=== PATIENT | female | born 1955 | race Caucasian/White ===

== ENCOUNTER 2019-03-11 08:32 | Day surgery (SDC) | payer BC, SELFPAY ==
--- NOTE | 2019-03-11 | COLBX_PTH ---
PATIENT: CAESAR SERRA LOC: EN U#:[id number] AGE/SX: 63/F ROOM: RE03/11/[address]: Dr. Nikia Reza MD : 1955 BED: DIS: 03/11/2019 SPEC #: [id number] RECD: 03/11/19 14:36 STATUS: JASVIR RIKKI #: [id number] TANYA: 03/11/19 00:[address]: Nikia Reza DEPT: SURGICAL PATHOLOGY RECD BY: Mathew Daly ENTERED: 03/12/19 12:11 SP TYPE: COLON BX OTHR DR: Dr. Flakito Jackson, Tissues: A - Cecum, NOS B - Rectum, NOS Procedures: Surgery Specimen Level IV HEADER OPERATION: Colonoscopy - open access (MAC) PRE-OP DIAGNOSIS: Screening TISSUE SUBMITTED: A -Cecal polyp biopsy, B - Rectal polyp biopsy MICROSCOPIC DIAGNOSIS A. Cecal polyp, biopsy: Fragments of colonic mucosa, no pathologic diagnosis. B. Rectal polyp, biopsy Fragments of hyperplastic polyp. USAMA:law 03/13/19 MICROSCOPIC DESCRIPTION Slides are reviewed. GROSS DESCRIPTION A - Received in fixative is one container labeled with the patient's name and designated cecal polyp biopsy. The specimen consists of two irregular fragments of light ramirez soft tissue that in aggregate measure 0.5 x 0.3 x 0.1 cm. The specimen is totally submitted in one cassette. B - Received in fixative is one container labeled with the patient's name and designated rectal polyp biopsy. The specimen consists of multiple irregular fragments of light ramirez soft tissue that in aggregate measure 1.5 x 0.3 x 0.1 cm. The specimen is totally submitted in one cassette. / USAMA:law 03/12/19 TC:5 CPT: 84735 x2
[2019-03-11 08:49] VITALS: BP 106/71; PULSE 70; RESP 16; TEMP 36.5; O2SAT 100; BMI 25.8
--- NOTE | 2019-03-11 09:01 | H&P.OPEN ---
History of Present Illness Date of Admission: 03/11/19 The patient is a 63 year old F presents for screening colonoscopy. Patient states her prep is clear yellow liquid. Patient's father was diagnosed at 63 and at age 64 from colon cancer. Patient's brother diagnosed at age 52 and is currently undergoing treatment for colon cancer. Patient did have a total thyroidectomy as well as a left mastectomy for thyroid cancer and left breast cancer in 2018. Patient states she has bowel movements about every other day denies any blood. Patient is never had a colonoscopy. Past Medical/Surgical History - Planned Operation Planned Operative Procedure/s: COLONOSCOPY Date of Operative Procedure: 03/11/19 Permit Signed: No S.O.S: No Is This Patient Having a Total Joint: No - Previous Hospitalizations/Surgeries HX Hospitalizations: Yes - 2018/ MASTECTOMY/THYROIDECTOMY HX of Surgeries: TOTAL THYROIDECTOMY/ CA. LEFT MASTECTOMY/ NODES. TUBAL/HYSTERECTOMY. APPENDECTOMY Any Problems With Anesthesia: Yes - N/V You/Your Family Experience Fever (Hyperthermia) With Anes: No Cholinesterase deficiency: No - Cardiovascular Hx Chest Pain within Last 2 months: No Hx of Irregular Heartbeat and/or Afib: Yes - MURMUR PER HX Hx Heart Attack: No Hx Congestive Heart Failure: No Hx Rheumatic Fever: No Hx Hypertension: No Hx Internal Defibrillator: No Hx Pacemaker: No Hx Cardiac Catheterization: No Hx Cardiac Surgery/Stents/Etc.: No Hx Stress Test: No HX Edema: No Hx Pain in Legs when Walking/Leg Cramps: No - Respiratory Chronic Cough: No HX of Shortness of Breath: No Hoarseness: No Hx Chronic Obstructive Pulmonary Disease (COPD): No Hx Asthma: No Hx Emphysema: No Hx Sleep Apnea: No Hx Oxygen Use at Home: No Hx Respiratory Tract Infection/Cold (presently): No Do You Snore Loudly (louder than talking or can be heard): Yes Do You Often Feel Tired/ Fatigued/ Sleepy Dring Daytime?: No Has Anyone Observed You Stop Breathing During Sleep?: No Result (for STOP score): Negative Hx Smoking: Yes - QUIT 2018, FORMER 40+ YRS Smoking Status: Former smoker - Gastrointestinal Hx Gastroesophageal Reflux: No Hx Gastrointestinal Disorders: No Hx Gastrointestinal Bleed: No Hx Ulcer: No Hx Hiatal Hernia: No Difficulty Chewing/Swallowing: No Recent Onset of Swallowing Problems: No Special diet followed at home: No Hx Unplanned Weight Loss of 20#: No HX Unplanned Weight Gain of 20#: No - Neurological Hx Seizures: No HX Syncope/Blackout Spells/Unconsciousness: No Hx CVA/Stroke: No Hx Transient Ischemic Attacks (TIA): No Hx Multiple Sclerosis: No Hx Parkinson's Disease: No Hx Head/Neck Injury: No Hx Headaches: No Hx Back Injury/Pain: No Recent Onset of Speech Difficulty: No Restless Legs: No Does patient have nerve stimulator: No Patient instructed to have device shut off: No Rep notified?: No - Blood Disorder Hx Leukemia: No Bleeding Tendencies: No Hx Deep Vein Thrombosis: No Hx High Cholesterol: No Blood Transmitted Disease: No Hx Hepatitis: No Hx Cirrhosis: No Hx Anemia: No Hx Blood Disorders: Yes - FACTOR 5 - Reproduction : No Is Patient Lactating: No Hx Hysterectomy: Yes Hx Tubal Ligation: Yes Are You Post Menopause: Yes - Genitourinary Hx Renal Disease: No - Musculoskeletal Hx Arthritis: No Hx Rheumatoid Arthritis: No - CONNECTIVE TISSUE DISEASE Hx Gout: No Recent Onset of an Orthopedic Problem: No - Endocrine Hx Diabetes: No Thyroid Disease: Yes - ON MED Hx Steroid Therapy: No - Psycho/Social Hx Substance Use: No Hx Alcohol Use: Yes - 4 DRINKS/YEAR Hx Anxiety: Yes - ON MED Hx Depression: No Mental Illness: No Hx Dementia: No - Miscellaneous Hx Cancer: Yes - L BREAST, THYROID Recent Exposure to Contagious Disease: No Active MRSA: No Hx of C-Diff: No Any Loose Teeth: No - IMPLANTS Allergies codeine Allergy (Verified 03/11/19 08:48) Hives meperidine [From Demerol] Allergy (Verified 03/11/19 08:48) Hives - Discharge Is Pt Admitted From a Group Home, or a Nursing Home: No Who Could Help: DAUGHTER After D/C, Where Do you Plan to Go: Return Home - Physical Exam General: Alert, Oriented x3, Cooperative, No apparent distress HEENT: Atraumatic Lungs: Normal air movement Cardiovascular: Regular rate Abdomen: Soft, Non Tender - No peritoneal signs, Non-Distended Extremities: No clubbing, No cyanosis, No edema Neurological: Cranial nerves II-XII grossly intact Psych/Mental Status: Normal Affect Vital Signs Temp Pulse Resp BP Pulse Ox 97.7 F L 70 16 106/71 100 03/11/19 08:49 03/11/19 08:49 03/11/19 08:49 03/11/19 08:49 03/11/19 08:49 Oxygen Delivery Method Room Air Weight: 145 lb 11.609 oz Body Mass Index (BMI) 25.8 Assessment/Plan 63-year-old female for screening colonoscopy for colon cancer, positive family history 2 first-degree relatives-her father (dx 63 y/o) and brother (dx 52 y/o) Surgery Risks - Colonoscopy I discussed with the patient the risks of the procedure: Yes Risks Include but are not Limited To: Risks include but are not limited to: Bleeding, perforation requiring further surgery, inability to complete colonoscopy requiring barium enema. Patient no further questions at this time.
--- NOTE | 2019-03-11 09:54 | OP.ENDO_ITS ---
03/11/2019 Flakito Jackson [address] [place] [address] Re : Colonoscopy procedure for Zoltan Shi Dear Dr. Jackson This procedure was performed on Monday, March 11, 2019. My impressions and recommendations are as follows: Impressions : - Two 3 to 6 mm polyps in the rectum and in the cecum, removed with a cold biopsy forceps. Resected and retrieved. - The examination was otherwise normal on direct and retroflexion views. Recommendations : - Discharge patient to home. - Continue present medications. - Await pathology results. - Repeat colonoscopy in 3 years for surveillance based on pathology results. My findings are described in the full procedure note, which is enclosed. If I can be of further assistance, please feel free to contact me at Doctor phone number(s): , Work: . Sincerely, MD Nikia Aguila MD 03/11/2019 9:54:02 AM This report has been signed electronically.
[2019-03-11 09:55] VITALS: BP 106/71; BP 92/57; PULSE 73; RESP 16; TEMP 36.3; O2SAT 100
[2019-03-11 10:00] VITALS: BP 104/93; BP 106/71; PULSE 74; RESP 16; O2SAT 100
[2019-03-11 10:05] VITALS: BP 106/71; BP 95/76; PULSE 70; RESP 16; O2SAT 100
[2019-03-11 10:10] VITALS: BP 101/78; BP 106/71; PULSE 71; RESP 16; TEMP 36.2; O2SAT 97
[2019-03-11 10:25] VITALS: BP 106/71
== END 2019-03-11 10:46 | disposition home or self-care (01) ==
LOC: EN 08:34 → AC 08:35
PROVIDERS: Family Provider Family Medicine; PCP Family Medicine; Referring Provider Surgery; Visit Provider Surgery
PROC: 0DJD8ZZ Inspection of Lower Intestinal Tract, Via Natural or Artificial Opening Endoscopic (ICD-10-PCS; CPT 45378; principal; 2019-03-11 09:25)
DX: Z12.11 Encounter for screening for malignant neoplasm of colon (principal); K62.1 Rectal polyp; D12.0 Benign neoplasm of cecum; Z80.0 Family history of malignant neoplasm of digestive organs; Z87.891 Personal history of nicotine dependence; Z90.12 Acquired absence of left breast and nipple; Z85.3 Personal history of malignant neoplasm of breast; Z85.9 Personal history of malignant neoplasm, unspecified
CPT/HCPCS: 45380; 88305; J7120; J2405

== ENCOUNTER → 2019-06-27 09:15 | Outpatient (CLI) | payer BC, SELFPAY ==
[2019-06-27 12:29] LABS: Anion Gap 5 (5-15); BUN 9 mg/dL (7-18); BUN/Creat Ratio 12.5 RATIO (10-20); Calcium,Total 9.2 mg/dL (8.5-10.1); Chloride 110 mmol/L (98-107); Cholesterol 186 mg/dL (200); Creatinine, Serum 0.72 mg/dL (0.55-1.02); EST Glomerular Filtration Rate 88 mL/min (>60); Est Glom Filt Rate - Afr Amer 106 mL/min (>60); Glucose 81 mg/dL (74-106); High Density Lipoprotein 51 mg/dL; Potassium 4.2 mmol/L (3.5-5.1); Sodium Level 143 mmol/L (136-145); T4 Free Direct 1.27 ng/dL (0.76-1.46); Thyroid Stim Hormone (TSH) 1.32 uIU/mL (0.358-3.74); Triglycerides 93 mg/dL; Very Low Density Lipoprotein 19 mg/dL (5-40)
[2019-06-30 11:04] LABS: Thyroglobulin Antibody < 1.0 IU/mL (0.0-0.9)
== END ==
PROVIDERS: Family Provider Family Medicine; PCP Family Medicine; Visit Provider Family Medicine
DX: Z00.00 Encounter for general adult medical examination without abnormal findings (principal); E03.2 Hypothyroidism due to medicaments and other exogenous substances; Z85.850 Personal history of malignant neoplasm of thyroid
CPT/HCPCS: 36415; 80048; 80061; 84439; 84443; 86800

== ENCOUNTER → 2019-12-30 08:53 | Outpatient (CLI) | payer BC, SELFPAY ==
[2019-12-30 12:42] LABS: Absolute Lymphocyte Count 1.59 X10^3/uL (0.83-4.51); Basophil# 0.05 X10^3/uL; Basophil% 1.2 % (0-1); Eosinophils% 4.8 % (0-5); Hematocrit 41.1 % (37-47); Hemoglobin 13.1 g/dL (12.0-15.0); Lymphocyte # 1.59 X10^3/ul (4.0); Mean Corp Hgb Conc 31.9 g/dL (32-36); Mean Corpuscular Volume 97.4 fL (81-99); Monocyte# 0.37 X10^3/uL; Monocyte% 8.9 % (0-10); NRBC Flagged by Analyzer 0 % (0-5); Neutrophil # 1.96 X10^3/uL (2.7-7.7); Neutrophil % 46.9 % (47-70); Platelet Count 228 K/mm3 (150-450); RBC Distribution Width CV 12.7 % (11.6-14.6); RBC Distribution Width SD 45.6 fl (35.1-43.9); Red Blood Count 4.22 M/mm3 (4.2-5.4); White Blood Count 4.2 K/mm3 (4.4-11.0)
[2019-12-30 13:05] LABS: Erythrocyte Sedimentation Rate 7 mm/hr (0-30)
[2019-12-30 13:06] LABS: ALB/GLOB Ratio 1.2 RATIO (0.9-2.4); AST(SGOT) 16 U/L (15-37); Alanine Aminotransfer ALT/SGPT 20 U/L (13-56); Albumin, Serum 3.7 g/dL (3.2-5.0); Alkaline Phosphatase 57 U/L (45-117); Anion Gap 5 (5-15); BUN 11 mg/dL (7-18); BUN/Creat Ratio 14.6 RATIO (10-20); CRP < 2.90 mg/L (0.0-3.0); Calcium,Total 9.5 mg/dL (8.5-10.1); Chloride 110 mmol/L (98-107); Creatinine, Serum 0.75 mg/dL (0.55-1.02); EST Glomerular Filtration Rate 83 mL/min (>60); Est Glom Filt Rate - Afr Amer 100 mL/min (>60); Globulin 3.1 g/dL (2.2-4.2); Glucose 79 mg/dL (74-106); Potassium 4.4 mmol/L (3.5-5.1); Protein, Total 6.8 g/dL (6.4-8.2); Sodium Level 143 mmol/L (136-145); T4 Free Direct 1.21 ng/dL (0.76-1.46); Thyroid Stim Hormone (TSH) 1.22 uIU/mL (0.358-3.74)
== END ==
PROVIDERS: PCP Family Medicine; Visit Provider Family Medicine
DX: E03.2 Hypothyroidism due to medicaments and other exogenous substances (principal); M35.9 Systemic involvement of connective tissue, unspecified; Z51.81 Encounter for therapeutic drug level monitoring
CPT/HCPCS: 36415; 80053; 84439; 84443; 85025; 85652; 86140

== ENCOUNTER → 2020-07-01 08:44 | Outpatient (CLI) | payer BC, SELFPAY ==
[2020-07-01 11:25] LABS: Absolute Lymphocyte Count 1.71 X10^3/uL (0.83-4.51); Basophil# 0.06 X10^3/uL; Basophil% 1.4 % (0-1); Eosinophil# 0.19 X10^3/uL; Eosinophils% 4.4 % (0-5); Hematocrit 43.2 % (37-47); Hemoglobin 13.7 g/dL (12.0-15.0); Lymphocyte # 1.71 X10^3/ul (4.0); Lymphocyte % 39.6 % (19-41); Mean Corp Hgb Conc 31.7 g/dL (32-36); Mean Corpuscular Hgb 31.2 pg (27.0-32.0); Mean Corpuscular Volume 98.4 fL (81-99); Mean Platelet Vol. 10.6 fl (6.2-12.0); Monocyte# 0.37 X10^3/uL; Monocyte% 8.6 % (0-10); NRBC Flagged by Analyzer 0 % (0-5); Neutrophil # 1.98 X10^3/uL (2.7-7.7); Neutrophil % 45.8 % (47-70); Platelet Count 250 K/mm3 (150-450); RBC Distribution Width CV 12.6 % (11.6-14.6); RBC Distribution Width SD 45.3 fl (35.1-43.9); Red Blood Count 4.39 M/mm3 (4.2-5.4); White Blood Count 4.3 K/mm3 (4.4-11.0)
[2020-07-01 11:45] LABS: ALB/GLOB Ratio 1.1 RATIO (0.9-2.4); AST(SGOT) 16 U/L (15-37); Alanine Aminotransfer ALT/SGPT 22 U/L (13-56); Albumin, Serum 3.7 g/dL (3.2-5.0); Alkaline Phosphatase 59 U/L (45-117); Anion Gap 5 (5-15); BUN 8 mg/dL (7-18); BUN/Creat Ratio 12.2 RATIO (10-20); Calcium,Total 9.1 mg/dL (8.5-10.1); Chloride 112 mmol/L (98-107); Creatinine, Serum 0.66 mg/dL (0.55-1.02); EST Glomerular Filtration Rate 97 mL/min (>60); Est Glom Filt Rate - Afr Amer 117 mL/min (>60); Globulin 3.4 g/dL (2.2-4.2); Glucose 72 mg/dL (74-106); Potassium 4.8 mmol/L (3.5-5.1); Protein, Total 7.1 g/dL (6.4-8.2); Sodium Level 143 mmol/L (136-145); T4 Free Direct 1.37 ng/dL (0.76-1.46); Thyroid Stim Hormone (TSH) 0.21 uIU/mL (0.358-3.74)
== END ==
PROVIDERS: PCP Family Medicine; Visit Provider Family Medicine
DX: Z51.81 Encounter for therapeutic drug level monitoring (principal); E03.2 Hypothyroidism due to medicaments and other exogenous substances
CPT/HCPCS: 36415; 80053; 84439; 84443; 85025

== ENCOUNTER → 2021-02-05 16:25 | Outpatient (CLI) | payer OTHER, SELFPAY ==
[2021-02-05 17:16] LABS: Absolute Lymphocyte Count 2.15 X10^3/uL (0.83-4.51); Absolute Neutrophil Count 1.9 X10^3/uL (2.0-7.7); Basophil# 0.06 X10^3/uL; Basophil% 1.3 % (0-1); Eosinophil# 0.22 X10^3/uL; Eosinophils% 4.6 % (0-5); Hematocrit 36.1 % (37-47); Hemoglobin 11.8 g/dL (12.0-15.0); Lymphocyte # 2.15 X10^3/ul (4.0); Lymphocyte % 45.4 % (19-41); Mean Corp Hgb Conc 32.7 g/dL (32-36); Mean Corpuscular Hgb 31.5 pg (27.0-32.0); Mean Corpuscular Volume 96.3 fL (81-99); Mean Platelet Vol. 10.3 fl (6.2-12.0); Monocyte# 0.41 X10^3/uL; Monocyte% 8.6 % (0-10); NRBC Flagged by Analyzer 0 % (0-5); Neutrophil # 1.89 X10^3/uL (2.7-7.7); Neutrophil % 39.9 % (47-70); Platelet Count 228 K/mm3 (150-450); RBC Distribution Width SD 45.7 fl (35.1-43.9); Red Blood Count 3.75 M/mm3 (4.2-5.4); White Blood Count 4.7 K/mm3 (4.4-11.0)
[2021-02-05 18:36] LABS: ALB/GLOB Ratio 1.2 RATIO (0.9-2.4); AST(SGOT) 19 U/L (15-37); Alanine Aminotransfer ALT/SGPT 28 U/L (13-56); Albumin, Serum 3.7 g/dL (3.2-5.0); Alkaline Phosphatase 66 U/L (45-117); Anion Gap 9 (5-15); BUN 13 mg/dL (7-18); BUN/Creat Ratio 17.8 RATIO (10-20); Chloride 108 mmol/L (98-107); Creatinine, Serum 0.73 mg/dL (0.55-1.02); EST Glomerular Filtration Rate 85 mL/min (>60); Est Glom Filt Rate - Afr Amer 103 mL/min (>60); Glucose 75 mg/dL (74-106); Potassium 3.7 mmol/L (3.5-5.1); Protein, Total 6.7 g/dL (6.4-8.2); Sodium Level 142 mmol/L (136-145)
[2021-02-08 08:48] LABS: Hepatitis C Antibody Non-Reactive (Nonreactive)
[2021-02-08 12:35] LABS: Hepatitis B Core Ab Total Negative (Negative)
== END ==
PROVIDERS: PCP Family Medicine; Referring Provider Family Medicine; Visit Provider Family Medicine
DX: Z51.81 Encounter for therapeutic drug level monitoring (principal)
CPT/HCPCS: 36415; 80053; 85025; 86704; 86803

== ENCOUNTER 2021-12-08 15:35 | Outpatient (CLI) | payer OTHER, SELFPAY ==
--- NOTE | 2021-12-08 15:37 | CT_ITS ---
EXAM: CT CHEST, LUNG CANCER SCREENING WITHOUT INTRAVENOUS CONTRAST : 1955 CLINICAL INDICATION: SCREENING TECHNIQUE: Helically acquired images were obtained of the chest without intravenous contrast using low dose (LDCT) lung cancer screening protocol. This CT exam was performed using one or more of the following dose reduction techniques: automated exposure control, adjustment of the mA and/or kV according to patient size, and/or use of iterative reconstruction technique. This report was created using Logentries report generation technology. COMPARISON: None. FINDINGS: LUNGS AND PLEURAL SPACES: Mild centrilobular pulmonary emphysema noted. 7 mm ground glass density noted within the right middle lobe adjacent to the fissure. Lungs are otherwise clear. No mass. No pleural effusion or thickening. No pneumothorax. HEART: Unremarkable. Heart size is normal. No pericardial effusion. No significant coronary artery calcifications. MEDIASTINUM: Unremarkable. No mediastinal or hilar adenopathy. Esophagus is unremarkable. No hiatal hernia. THYROID: Not well seen. BONES/JOINTS: Unremarkable. No suspicious lytic or blastic abnormality. VASCULATURE: Unremarkable. Thoracic aorta is non-dilated. LYMPH NODES: Unremarkable. No enlarged lymph nodes. OTHER FINDINGS: Left mammary implant is in place. CT/Low Dose CT Lung Screening IMPRESSION: 1. No evidence of a lung mass or nodule. 2. 7 mm groundglass density right middle lobe. 3. ACR Lung CT Screening Reporting T Data System (Lung-RADS) score: 2 - Benign Appearance or Behavior. Recommend continued annual screening with low-dose CT (LDCT) in 12 months. Individualized dose optimization techniques were used for this CT. at 1621 Reported and signed by: Bruno Leal MD Electronically Signed: Bruno Leal MD at 16:20 EST ,
== END 2021-12-08 23:59 | disposition short-term general hospital (02) ==
LOC: CT 15:35
PROVIDERS: PCP Family Medicine; Referring Provider Family Medicine; Visit Provider Family Medicine
DX: Z12.2 Encounter for screening for malignant neoplasm of respiratory organs (principal)
CPT/HCPCS: 71271

== ENCOUNTER 2022-01-10 09:45 | Outpatient (RCR) | payer OTHER, SELFPAY | END 2022-01-10 23:59 | LOC: EMPH 09:45 | PROVIDERS: PCP Family Medicine; Visit Provider Family Medicine Geriatric Medicine | DX: Z03.818 Encounter for observation for suspected exposure to other biological agents ruled out (principal) | CPT/HCPCS: 87426 ==

== ENCOUNTER 2022-01-11 15:34 | Outpatient (CLI) | payer OTHER, SELFPAY ==
--- NOTE | 2022-01-11 15:42 | BD_ITS ---
STUDY: DUAL ENERGY X-RAY ABSORPTIOMETRY / DXA REASON FOR EXAM: Female, 66 years old. M81.0. The patient is postmenopausal. TECHNIQUE: Bone Mineral Density (BMD) measurements of lumbar spine and bilateral hips were obtained. COMPARISON: None. FINDINGS: Lumbar Spine (L1-L4): g/cm2 (0.957) / T-score (-0.8) / Z-score (0.9) Findings are suggestive of normal bone density with a low fracture risk. Left Femur Total: g/cm2 (0.837) / T-score (-0.9) / Z-score (0.3) Left Femoral Neck: g/cm2 (0.717) / T-score (-1.2) / Z-score (0.3) Right Femur Total: g/cm2 (0.857) / T-score (-0.7) / Z-score (0.5) Right Femoral Neck: g/cm2 (0.760) / T-score (-0.8) / Z-score (0.7) BD/Dexa Bone Density Study IMPRESSION: The patient is considered normal as outlined below according to World Semaj Organization (WHO) criteria with a low fracture risk. Reference Information: The T-score is the number of standard deviations above or below the standard which is normal for young adults at their peak bone mineral density. The World Health Organization (WHO) interprets the T-scores as follows: Above -1 Normal bone density Between -1 and -2.5 Osteopenia Equal to / or below -2.5 Osteoporosis As a practical clinical guideline, osteopenia may be graded as follows: Mild -1 through -1.5 Moderate -1.6 through -2.0 Severe -2.1 through -2.4 The Z-score is the number of standard deviations above or below age-matched controls. A Z-score of less than -1.5 would be considered abnormal. References: 1. NIH Osteoporosis and Related Bone Diseases www osteo.org 2. International Society for Clinical Densitometry www iscd.org 3. National Osteoporosis Foundation www nof.org Electronically Signed: Conrado Ureña MD at 14:54 EST ,
== END 2022-01-11 23:59 | disposition home or self-care (01) ==
LOC: OPBD 15:35
PROVIDERS: PCP Family Medicine; Visit Provider Specialist
DX: Z13.820 Encounter for screening for osteoporosis (principal); C50.412 Malignant neoplasm of upper-outer quadrant of left female breast; Z17.0 Estrogen receptor positive status [ER+]
CPT/HCPCS: 77080

== ENCOUNTER 2022-01-26 15:22 | Outpatient (CLI) | payer OTHER, SELFPAY ==
--- NOTE | 2022-01-26 15:41 | BI_ITS ---
MAMMOGRAPHY - UNILATERAL SCREENING: RIGHT BREAST REASON FOR EXAM: Female, 66 years old. Routine annual screening examination (unilateral). PERTINENT HISTORY: Non-contributory. TECHNIQUE: Digital examination. Mediolateral oblique (MLO) and craniocaudad (CC) views of the breast were obtained. CAD: CAD was performed on this study. COMPARISON: None. FINDINGS: Breast Composition: There are scattered areas of fibroglandular density. There are no dominant masses or suspicious calcifications. No other significant abnormalities are identified. BI/SCREEN MAMM (CAD) W/RUBÉN UNI R IMPRESSION: Stable right screening mammogram. ASSESSMENT CATEGORY: BIRADS Category 1: Negative. A letter regarding these results will be sent to the patient by the facility within 30 days. FOLLOW UP RECOMMENDATION: Yearly follow up mammogram recommended. (A) [id number] Approximately 10% of breast cancers are not detected by mammography. A normal mammogram should not delay biopsy of a clinically suspicious abnormality. [id number] Electronically Signed: Bradley Juan MD at 8:54 EDT ,
== END 2022-01-26 23:59 | disposition home or self-care (01) ==
LOC: OPBI 15:40
PROVIDERS: PCP Family Medicine; Referring Provider Specialist; Visit Provider Specialist
DX: Z12.31 Encounter for screening mammogram for malignant neoplasm of breast (principal)
CPT/HCPCS: 77063; 77067

== ENCOUNTER 2022-02-15 09:04 | Outpatient (CLI) | payer OTHER, SELFPAY ==
[2022-02-15 09:40] LABS: Absolute Lymphocyte Count 1.45 X10^3/uL (0.83-4.51); Absolute Neutrophil Count 3.1 X10^3/uL (2.0-7.7); Basophil# 0.05 X10^3/uL; Basophil% 0.9 % (0-1); Eosinophil# 0.26 X10^3/uL; Eosinophils% 4.9 % (0-5); Hemoglobin 11.9 g/dL (12.0-15.0); Lymphocyte # 1.45 X10^3/ul (0.83-4.51); Lymphocyte % 27.5 % (19-41); Mean Corp Hgb Conc 32.2 g/dL (32-36); Mean Corpuscular Hgb 30.8 pg (27.0-32.0); Mean Corpuscular Volume 95.9 fL (81-99); Mean Platelet Vol. 9.6 fl (6.2-12.0); Monocyte# 0.41 X10^3/uL; Monocyte% 7.8 % (0-10); NRBC Flagged by Analyzer 0 % (0-5); Neutrophil # 3.08 X10^3/uL (2.7-7.7); Neutrophil % 58.3 % (47-70); Platelet Count 345 K/mm3 (150-450); RBC Distribution Width CV 12.6 % (11.6-14.6); RBC Distribution Width SD 44.5 fl (35.1-43.9); Red Blood Count 3.86 M/mm3 (4.2-5.4); White Blood Count 5.3 K/mm3 (4.4-11.0)
[2022-02-15 10:06] LABS: Vitamin B12 347 pg/mL (211-911)
[2022-02-15 10:17] LABS: ALB/GLOB Ratio 0.8 RATIO (0.9-2.4); AST(SGOT) 16 U/L (15-37); Alanine Aminotransfer ALT/SGPT 17 U/L (13-56); Albumin, Serum 3.2 g/dL (3.2-5.0); Alkaline Phosphatase 74 U/L (45-117); Anion Gap 4 (5-15); BUN 11 mg/dL (7-18); BUN/Creat Ratio 14.1 RATIO (10-20); Calcium,Total 8.5 mg/dL (8.5-10.1); Chloride 106 mmol/L (98-107); Creatinine, Serum 0.78 mg/dL (0.55-1.02); EST Glomerular Filtration Rate 79 mL/min (>60); Est Glom Filt Rate - Afr Amer 95 mL/min (>60); Globulin 3.8 g/dL (2.2-4.2); Glucose 94 mg/dL (74-106); Potassium 3.9 mmol/L (3.5-5.1); Sodium Level 140 mmol/L (136-145); T4 Free Direct 1.04 ng/dL (0.76-1.46); Thyroid Stim Hormone (TSH) 3.23 uIU/mL (0.358-3.74)
== END 2022-02-15 23:59 | disposition home or self-care (01) ==
LOC: LAB 09:05
PROVIDERS: PCP Family Medicine; Referring Provider Family Medicine; Visit Provider Family Medicine
DX: R53.83 Other fatigue (principal); E03.2 Hypothyroidism due to medicaments and other exogenous substances; M85.80 Other specified disorders of bone density and structure, unspecified site
CPT/HCPCS: 36415; 80053; 82306; 82607; 84439; 84443; 85025

== ENCOUNTER 2022-08-01 06:55 | Day surgery (SDC) | payer OTHER, SELFPAY ==
[2022-08-01] MEDS: Lactated Ringers 1,000 ML 15 ML IV (07:15)
--- NOTE | 2022-08-01 07:27 | HP.PCM_ITS ---
HPI - General [facility] Narrative CAESAR SERRA, is a 66 F who presents for screening colonoscopy due to history of colon polyps and family history. Patient last colonoscopy was 03/11/2019. Patient's father was diagnosed at age 63 and at age 64 from colon cancer. Patient's brother diagnosed age 52 with metastatic colon cancer and at 54. Patient also previously had a total thyroidectomy around the left mastectomy for thyroid cancer and breast cancer in 2018. Patient's bowel moods daily denies any blood denies any chronic abdominal pain/nausea/vomiting/reflux. COUNT INCLUDES THE [facility] Medical History (Updated 08/01/22 @ 07:[address] Nikia Reza MD) Alcohol use Arthritis Blood disorder Cancer Connective tissue disease Former smoker History of colon polyps History of edema History of irregular heartbeat History of steroid therapy Hypothyroid Post-menopausal Shortness of breath on exertion Thyroid disease Wears contact lenses Wears glasses Home Medications anastrozole 1 mg tablet 1 mg PO DAILY BREAST CA 03/08/19 [History Last Taken 07/31/22] calcium carbonate-vitamin D3 600 mg-125 unit tablet (Calcium) 1 ea PO DAILY SUPPLEMENT 03/08/19 [History Last Taken 07/31/22] hydroxychloroquine 200 mg tablet (Plaquenil) 200 mg PO DAILY CONNECTIVE TISSUE 03/08/19 [History Last Taken 07/31/22] levothyroxine 100 mcg tablet 100 mcg PO DAILY THYROID 03/08/19 [History Last Taken 08/01/22] multivitamin 1 ea PO DAILY SUPPLEMENT 03/08/19 [History Last Taken 07/31/22] vitamin B12 500 mcg-folic acid 400 mcg tablet 1 tab PO DAILY 05/06/22 [History Last Taken 07/31/22] Allergy/AdvReac Type Severity Reaction Status Date / Time codeine Allergy Hives Verified 08/01/22 07:27 meperidine [From Demerol] Allergy Hives Verified 08/01/22 07:27 Family History (Updated 05/06/22 @ 10:27 by Charlotte Baumann) Father Colon cancer Brother Colon cancer Surgical History Hx of appendectomy Hx of colonoscopy Hx of hysterectomy Hx of left mastectomy Hx of thyroidectomy Social History Smoking Status: Former smoker Past Medical/Surgical History Planned Operation Planned Operative Procedure/s: COLONOSCOPY/EGD S.O.S: No Previous Hospitalizations/Surgeries HX Hospitalizations: No HX of Surgeries: TOTAL THYROIDECTOMY/ CA LEFT MASTECTOMY/ NODES TUBAL/HYSTERECTOMY APPENDECTOMY Any Problems With Anesthesia: Yes (N/V) You/Your Family Experience Fever (Hyperthermia) With Anes: No Cholinesterase deficiency: No Cardiovascular Hx Chest Pain within Last 2 months: No Hx of Irregular Heartbeat and/or Afib: Yes (MURMUR PER HX) Hx Heart Attack: No Hx Congestive Heart Failure: No Hx Rheumatic Fever: No Hx Hypertension: No Hx Internal Defibrillator: No Hx Pacemaker: No Hx Cardiac Catheterization: No Hx Cardiac Surgery/Stents/Etc.: No Hx Stress Test: No Hx Pain in Legs when Walking/Leg Cramps: No Respiratory Chronic Cough: No HX of Shortness of Breath: No Hoarseness: No Hx Chronic Obstructive Pulmonary Disease (COPD): No Hx Asthma: No Hx Emphysema: No Hx Sleep Apnea: No Hx Respiratory Tract Infection/Cold (presently): No Do You Snore Loudly (louder than talking or can be heard): No Do You Often Feel Tired/ Fatigued/ Sleepy Dring Daytime?: No Has Anyone Observed You Stop Breathing During Sleep?: No Result (for STOP score): Negative Hx Smoking: Yes (QUIT 2017, FORMER 40+ YRS) Smoking Status: Former smoker Gastrointestinal Hx Gastroesophageal Reflux: No Hx Gastrointestinal Disorders: No Hx Gastrointestinal Bleed: No Hx Ulcer: No Hx Hiatal Hernia: No Difficulty Chewing/Swallowing: No Special diet followed at home: No Hx Unplanned Weight Loss of 20#: No HX Unplanned Weight Gain of 20#: No Neurological Hx Seizures: No HX Syncope/Blackout Spells/Unconsciousness: No Hx Transient Ischemic Attacks (TIA): No Hx Multiple Sclerosis: No Hx Parkinson's Disease: No Hx Head/Neck Injury: No Hx Headaches: No Hx Back Injury/Pain: No Recent Onset of Speech Difficulty: No Restless Legs: No Does patient have nerve stimulator: No Blood Disorder Hx Leukemia: No Bleeding Tendencies: No Hx Deep Vein Thrombosis: No Hx High Cholesterol: No Blood Transmitted Disease: No Hx Hepatitis: No Hx Cirrhosis: No Hx Anemia: No Hx Blood Disorders: Yes (FACTOR 5) Reproduction Is Patient Lactating: No Hx Hysterectomy: Yes Hx Tubal Ligation: Yes Are You Post Menopause: Yes Genitourinary Hx Renal Disease: No Musculoskeletal Hx Arthritis: No Hx Rheumatoid Arthritis: No (CONNECTIVE TISSUE DISEASE) Hx Gout: No Recent Onset of an Orthopedic Problem: No Endocrine Hx Diabetes: No Thyroid Disease: Yes (ON MED) Hx Steroid Therapy: No Psycho/Social Hx Substance Use: No Hx Alcohol Use: Yes (4 DRINKS/YEAR) Hx Anxiety: Yes (ON MED) Hx Depression: No Mental Illness: No Hx Dementia: No Miscellaneous Hx Cancer: Yes (L BREAST, THYROID) Recent Exposure to Contagious Disease: No Hx of C-Diff: No Any Loose Teeth: No (IMPLANTS) Allergies codeine Allergy (Verified 08/01/22 07:27) Hives meperidine [From Demerol] Allergy (Verified 08/01/22 07:27) Hives Discharge Is Pt Admitted From a [facility], or a [facility]: No After D/C, Where Do you Plan to Go: Return Home From the PAT History Number of Risk Factors: 5 Physical Exam Const alert, oriented x3 and no apparent distress HEENT normocephalic and head/scalp atraumatic Resp normal respiratory effort Cardio regular rate GI soft to palpation and non-tender; Negative for non-distended Palpation: Negative for guarding Extremity no clubbing, cyanosis or edema Neuro CN's II-XII intact bilaterally Psych mental status grossly normal Assessment & Plan Assessment/Plan (1) Family history of malignant neoplasm of colon in first degree relative diagnosed when younger than 60 years of age: Surgery Risks - Colonoscopy Risks Include but are not Limited To: Risks include but are not limited to: Bleeding, perforation requiring further surgery, inability to complete colonoscopy requiring barium enema.
[2022-08-01 07:28] VITALS: BP 129/76; PULSE 76; RESP 18; TEMP 36.6; O2SAT 97; BMI 25.2
[2022-08-01 08:30] VITALS: BP 129/76; BP 92/52; PULSE 72; RESP 17; TEMP 36.8; O2SAT 100
[2022-08-01 08:35] VITALS: BP 129/76; BP 88/59; PULSE 72; RESP 18; O2SAT 100
--- NOTE | 2022-08-01 08:38 | OP.COLON_ITS ---
Patient Name: Zoltan Shi Procedure Date: 08/01/2022 8:04 AM Date of : 1955 Age: 66 Procedure: Colonoscopy Indications: High risk colon cancer surveillance: Personal history of colonic polyps, Family history of colon cancer in multiple first-degree relatives Providers: Nikia Reza MD Referring MD: Flakito Jackson Medicines: Monitored Anesthesia Care Patient Profile: This is a 66 year old female. Last Colonoscopy: 3 years ago. Complications: No immediate complications. Procedure: Pre-Anesthesia Assessment: - Prior to the procedure, a History and Physical was performed, and patient medications and allergies were reviewed. The patient's tolerance of previous anesthesia was also reviewed. The risks and benefits of the procedure and the sedation options and risks were discussed with the patient. All questions were answered, and informed consent was obtained. Prior Anticoagulants: The patient has taken no previous anticoagulant or antiplatelet agents. ASA Grade Assessment: Per anesthesia. After reviewing the risks and benefits, the patient was deemed in satisfactory condition to undergo the procedure. After I obtained informed consent, the scope was passed under direct vision. Throughout the procedure, the patient's blood pressure, pulse, and oxygen saturations were monitored continuously. The pediatric colonoscope was introduced through the anus and advanced to the cecum, identified by the ileocecal valve. The colonoscopy was performed without difficulty. The patient tolerated the procedure well. The quality of the bowel preparation was good. Scope In: 8:11:02 AM Scope Withdrawal Time 0 hours 7 minutes 53 seconds Scope Out: 8:26:35 AM Total Procedure Duration Time 0 hours 15 minutes 33 seconds Findings: External and internal hemorrhoids were found. The hemorrhoids were small and Grade I (internal hemorrhoids that do not prolapse). The entire examined colon appeared normal. Impression: - External and internal hemorrhoids. - The entire examined colon is normal. - No specimens collected. Recommendation: - Discharge patient to home. - Resume previous diet. - Continue present medications. - Repeat colonoscopy in 5 years for screening purposes. Procedure Code(s): --- Professional --- G0105, PT, Colorectal cancer screening; colonoscopy on individual at high risk Diagnosis Code(s): --- Professional --- Z86.010, Personal history of colonic polyps K64.0, First degree hemorrhoids Z80.0, Family history of malignant neoplasm of digestive organs CPT copyright 2017 [employer]. All rights reserved. The codes documented in this report are preliminary and upon case reviewer review may be revised to meet current compliance requirements. MD Nikia Aguila MD 08/01/2022 8:38:14 AM This report has been signed electronically. Number of Addenda: 0 Note Initiated On: 08/01/2022 8:04 AM
--- NOTE | 2022-08-01 08:39 | OP.CCLET_ITS ---
08/01/2022 Flakito Jackson [address] [place] [address] Re : Colonoscopy procedure for Zoltan Maciasger Dear Dr. Jackson This procedure was performed on Monday, August 01, 2022. My impressions and recommendations are as follows: Impressions : - External and internal hemorrhoids. - The entire examined colon is normal. - No specimens collected. Recommendations : - Discharge patient to home. - Resume previous diet. - Continue present medications. - Repeat colonoscopy in 5 years for screening purposes. My findings are described in the full procedure note, which is enclosed. If I can be of further assistance, please feel free to contact me at Doctor phone number(s): , Work: . Sincerely, MD Nikia Aguila MD 08/01/2022 8:38:14 AM This report has been signed electronically.
[2022-08-01 08:40] VITALS: BP 129/76; BP 98/67; PULSE 69; RESP 18; O2SAT 100
[2022-08-01 08:45] VITALS: BP 129/76; BP 96/70; PULSE 69; RESP 18; TEMP 36.6; O2SAT 100
[2022-08-01 09:00] VITALS: BP 129/76
== END 2022-08-01 09:05 | disposition home or self-care (01) ==
LOC: EN 06:56 → AC 06:57
PROVIDERS: PCP Family Medicine; Referring Provider Family Medicine; Visit Provider Surgery
PROC: 0DJD8ZZ Inspection of Lower Intestinal Tract, Via Natural or Artificial Opening Endoscopic (ICD-10-PCS; CPT 45378; principal; 2022-08-01 08:10)
DX: K64.4 Residual hemorrhoidal skin tags (principal); E89.0 Postprocedural hypothyroidism; Z87.891 Personal history of nicotine dependence; K64.0 First degree hemorrhoids; Z80.0 Family history of malignant neoplasm of digestive organs; Z79.811 Long term (current) use of aromatase inhibitors; Z86.010 Personal history of colon polyps
CPT/HCPCS: 45378; J7120; J2405

== ENCOUNTER → 2023-03-31 | Outpatient (CLI) | payer MEDICARE, OTHER, SELFPAY ==
[2023-03-31 12:32] LABS: Absolute Lymphocyte Count 1.69 X10^3/uL (0.83-4.51); Absolute Neutrophil Count 2.4 X10^3/uL (2.0-7.7); Basophil# 0.08 X10^3/uL; Basophil% 1.7 % (0-1); Eosinophils% 4.2 % (0-5); Hematocrit 43.8 % (37-47); Hemoglobin 13.9 g/dL (12.0-15.0); Lymphocyte # 1.69 X10^3/ul (0.83-4.51); Lymphocyte % 35.7 % (19-41); Mean Corp Hgb Conc 31.7 g/dL (32-36); Mean Corpuscular Volume 97.8 fL (81-99); Mean Platelet Vol. 11.2 fl (6.2-12.0); Monocyte# 0.35 X10^3/uL; Monocyte% 7.4 % (0-10); NRBC Flagged by Analyzer 0 % (0-5); Neutrophil % 50.8 % (47-70); Platelet Count 235 K/mm3 (150-450); RBC Distribution Width CV 13.5 % (11.6-14.6); RBC Distribution Width SD 48.6 fl (35.1-43.9); Red Blood Count 4.48 M/mm3 (4.2-5.4); White Blood Count 4.7 K/mm3 (4.4-11.0)
[2023-03-31 13:13] LABS: ALB/GLOB Ratio 0.9 RATIO (0.9-2.4); AST(SGOT) 23 U/L (15-37); Alanine Aminotransfer ALT/SGPT 20 U/L (13-56); Albumin, Serum 3.5 g/dL (3.2-5.0); Alkaline Phosphatase 60 U/L (45-117); Anion Gap 7 (5-15); BUN 8 mg/dL (7-18); BUN/Creat Ratio 10.6 RATIO (10-20); Calcium,Total 9.2 mg/dL (8.5-10.1); Chloride 112 mmol/L (98-107); Creatinine, Serum 0.76 mg/dL (0.55-1.02); EST Glomerular Filtration Rate 82 mL/min (>60); Est Glom Filt Rate - Afr Amer 99 mL/min (>60); Globulin 4.1 g/dL (2.2-4.2); Glucose 86 mg/dL (74-106); Protein, Total 7.6 g/dL (6.4-8.2); Sodium Level 141 mmol/L (136-145); T4 Free Direct 1.47 ng/dL (0.76-1.46)
== END | disposition home or self-care (01) ==
PROVIDERS: PCP Family Medicine; Visit Provider Family Medicine
DX: E03.2 Hypothyroidism due to medicaments and other exogenous substances (principal); D64.9 Anemia, unspecified; Z51.81 Encounter for therapeutic drug level monitoring
CPT/HCPCS: 36415; 80053; 84439; 84443; 85025

== ENCOUNTER → 2023-12-22 | Outpatient (CLI) | payer MEDICARE, OTHER, SELFPAY ==
--- NOTE | 2023-12-22 07:17 | CT_ITS ---
STUDY: LOW DOSE CT LUNG CANCER SCREENING REASON FOR EXAM: Female, 68 years old. NICOTINE DEPENDENCE. Patient smoked 1 pack per day for 40 years. History of prior left mastectomy. RADIATION DOSAGE (If Supplied By Facility): CTDIvol = ( 2.01 ) mGy, DLP = ( 68.46 ) mGycm TECHNIQUE: No contrast was administered. Low dose technique was utilized (average mAS-38 and kVp 120). 1.25 mm axial source images with a slice interval of 1.25-mm were reconstructed in lung windows. 2.5 mm axial source images with a slice interval of 2.5-mm were reconstructed in lung windows. 5.0 mm axial source images with a slice interval of 5.0-mm were reconstructed in soft tissue windows. COMPARISON: Comparison is made with prior study dated December 08, 2021. NODULES: No suspicious nodules are seen. Emphysema: Stable mild emphysematous changes. Endobronchial lesion: Unremarkable Aorta: Unremarkable CORONARY ARTERIES: Coronary artery calcification is not seen. Heart: Unremarkable Pulmonary artery: Moderate Mediastinal nodes: Unremarkable Other chest and abdominal findings: Once again, the patient is status post left mastectomy and left breast prostheses. CT/Low Dose CT Lung Screening IMPRESSION: Lung-RADS category 2 - Continue annual screening with LDCT in 12 months. IMPORTANT NOTES FOR USE: ACR Lung-RADS Version 1.1 Assessment Categories Release Date: 2018 Category: Coded 0-4 bases on nodule(s) with highest degree of suspicion. Negative screen is defined as categories 1 and 2; a positive screen is defined as categories 3 and 4. Category 3 and 4A nodules that are unchanged on interval CT should be coded as category 2, and individuals returned to screening in 12 months. Category 4X: Category 3 or 4 nodules with additional imaging findings that increase the suspicion of lung cancer, such as spiculation, GGN that doubles in size in 1 year, enlarged lymph notes, etc. Category Modifiers: S (significant finding unrelated to lung cancer) Electronically Signed: Conrado Ureña MD at 10:48 EST ,
--- NOTE | 2023-12-22 07:18 | US_ITS ---
PROCEDURES: ULTRASOUND AORTA REASON FOR EXAM: Female, 68 years old. HX OF SMOKING -- AAA screening TECHNIQUE: Ultrasound evaluation of the aorta was performed with real-time and static rubio-scale imaging. COMPARISON: None. FINDINGS: There is atherosclerotic plaque formation of the abdominal aorta. Aorta measures: Proximal 2.2 cm. Middle 1.7 cm. Distal 1.5 cm. Aorta measure transversely: Proximal 2.2 cm. Middle 2.1 cm. Distal 1.6 cm. Right iliac artery measures: 0.9 cm. Right iliac artery measure transversely: 1.0 cm. Left iliac artery measures: 1.1 cm. Left iliac artery measure transversely: 1.0 cm. There is no demonstrated aneurysm.. US/Aorta IMPRESSION: No aneurysm seen. There is atherosclerotic plaque. Electronically Signed: Davonte Mckeon MD at 10:34 EST ,
--- OUTSIDE RECORDS SUMMARY | 2023-12-22 07:31 | XMS RPT_ITS | CCD ---
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 Name Role Phone Laura Franco Unavailable Unavailable UNKNOWN, PROVIDER Unavailable Unavailable Lucian Mcnally Unavailable Unavailable Manuel SCOTT, Zhanna A Primary Care Provider Manuel SCOTT, Zhanna A Primary Care Provider ZHANNA JACKSON Primary Care Unavailable WILIAM PURDY Referring Unavailable WILIAM PURDY Attending Unavailable WILIAM PURDY Referring Unavailable WILIAM PURDY Attending Unavailable ZHANNA JACKSON Primary Care Unavailable Manuel SCOTT, Zhanna A Primary Care Provider ZHANNA JACKSON Primary Care Unavailable WILIAM PURDY Referring Unavailable Allergies Allergy Classification Reported Allergen(s) Allergy Type Date of Onset Reaction(s) Facility (9 sources) Codeine; Translations: [CODEINE] Drug Allergy 05-21-2013 [facility] (9 sources) Meperidine; Translations: [MEPERIDINE (PF)] Drug Allergy 05-21-2013 Vomiting [facility] Medications Completed/Discontinued Medications Medication Drug Class(es) Dates Sig (Normalized) Sig (Original) anastrozole 1 mg oral tablet (9 sources) Aromatase Inhibitor Start: 04-23-2022 take 1 tablet by mouth once daily anastrozole (ARIMIDEX) 1 mg tablet Take 1 tablet by mouth once daily. 90 tablet 3 04/23/2022 Active Problems Active Problems Problem Classification Problem Date Documented Date Episodic/Chronic Cancer of breast (10 sources) Malignant neoplasm of female breast; Translations: [Malignant neoplasm of unspecified site of left female breast] Onset: 02-20-2018 02-20-2018 Chronic Complications of surgical procedures or medical care (7 sources) Postoperative hypothyroidism; Translations: [Postprocedural hypothyroidism] Onset: 08-29-2018 08-29-2018 Chronic Other screening for suspected conditions (not mental disorders or infectious disease) (3 sources) Patient encounter status; Translations: [Encounter for screening mammogram for malignant neoplasm of breast] Onset: 01-17-2023 Episodic Systemic lupus erythematosus and connective tissue disorders (7 sources) Disorder of connective tissue; Translations: [Systemic involvement of connective tissue, unspecified] 12-15-2017 Chronic Thyroid disorders (2 sources) Nontoxic multinodular goiter; Translations: [Nontoxic multinodular goiter] Onset: 11-01-2017 Chronic Past or Other Problems Problem Classification Problem Date Documented Da te Episodic/Chronic Cancer of thyroid (7 sources) History of malignant neoplasm of thyroid; Translations: [Personal history of malignant neoplasm of thyroid] Onset: 08-29-2018 08-29-2018 Episodic Residual codes; unclassified (1 source) Estrogen receptor positive status [ER+]; Translations: [Malignant neoplasm of upper-outer quadrant of left breast in female, estrogen receptor positive (HCC)] Onset: 02-20-2018 Episodic Results Test Name Value Interpretation Reference Range Facil ity Vital Signs Date Time Vital Sign Value Performing Clinician Faci lity 08-31-2022 10:18-0400 Body temperature 98.2 [degF] Wiliam Purdy MD Work Phone: [facility] 08-31-2022 10:18-0400 Body weight 67.59 kg Wiliam Purdy MD Work Phone: [facility] 08-31-2022 10:18-0400 Diastolic blood pressure 75 mm[Hg] Wiliam Purdy MD Work Phone: [facility] 08-31-2022 10:18-0400 Heart rate 75 /min Wiliam Purdy MD Work Phone: [facility] 08-31-2022 10:18-0400 Respiratory rate 18 /min Wiliam Purdy MD Work Phone: [facility] 08-31-2022 10:18-0400 SaO2% (BldA) [Mass fraction] 99 % Wiliam Purdy MD Work Phone: [facility] 08-31-2022 10:18-0400 Systolic blood pressure 119 mm[Hg] Wiliam Purdy MD Work Phone: [facility] Encounters Encounter Date Encounter Type Care Provider Facility Start: 01-18-2023 Documentation procedure Mammog ronald Coordinator [facility] Start: 01-18-2023 Letter encounter Mammography Coordinator [facility] NOT LISTED Start: 01-17-2023 ambulatory ZHANNA A MANUEL Facilit y:[facility] Start: 01-17-2023 End: 01-17-2023 Subsequent hospital visit by physician Mammo/Bone Density [facility] RADIO MAMMO [facility] Procedures Date Procedure Procedure Detail Performing Clinician Start: 01-17-2023 Mammography Mammograph y Coordinator Start: 02-18-2021 Mammography Wiliam cordoba MD Work Phone: Start: 01-20-2021 Adult depression screening assessment Wiliam Purdy MD Work Phone: Plan of Treatment Date Care Activity Detail Author Start: 01-18-2024 Mammography MAMMOGRAM [facility] Start: 03-01-2023 End: 09-30-2023 Screening mammography bi 2-view breast inc cad BRITNEY SCREENING Radiology Routine Malignant neoplasm of upper-outer quadrant of left breast in female, estrogen receptor positive (HCC) Encounter for screening mammogram for malignant neoplasm of breast Expected: 03/01/2023, Expires: 09/30/2023 [facility] Work Phone: Immunizations Immunization Date Immunization Notes Care Provider Fa cilied 07-27-2017 influenza, injectabl e, quadrivalent, contains preservative Wiliam Purdy MD Work Phone: [facility] Payers Date Payer Category Payer Private Health Insurance [facility] AARP SUPPLEMENT [id number] 2023-Present [phone] [address] [place] [address] Indemnity [id number] 2023 Unknown [id number] 2022 Medicare MEDICARE MEDICAR E A AND B [id number] 2022-Present [phone] [place] [address] Medicare [id number] 2022 Medicare [id number] 2021 Unknown MMO MMO TPA [id number] 2021-Present [address] [place] [address] PPO [id number] 2021 Unknown [id number] 1999 Unknown Social History Date Type Detail Facility Start: 03-23-2018 Tobacco smoking stat [facility] Ex-smoker [facility] Start: [birth year]15[birth year]1977 End: 02-21-2018 History of tobacco use Current smoker [facility] Start: [birth year]-15-1977 End: 02-21-2018 History of tobacco use Cigarette Smoker [facility] Start: 03-23-2018 Cigarettes smoked current (pack per day) - Reported 0.8 [facility] Start: 03-23-2018 Tobacco use and exposure Smokeless tobacco non-user [facility] Start: 10-30-2018 Alcohol intake 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) [facility] Start: 1955 Sex Assigned At Female [facility] Work Phone: Medical Equipment Procedure Code Equipment Code Equipment Origin al Text Equipment Identifier Dates Nro-Rd-E-Kind Implant - [id number] Start: 03-26-2018 Urq-Me-W-Kind Implant - [id number] Start: 03-26-2018 Clinical Notes 12-05-2017 to 01-18-2023 Letter - Mammography Coordinator - 01/18/2023 10:11 AM RT Edith(R) - 01/17/2023 9:30 AM Zeinab Purdy MD - 08/31/2022 10:41 AM EDT Note Date & Type Note Facility 01-18-2023 Miscellaneous Notes [address] [place] [address] January 18, 2023 PID: [id number] Zoltan Shi [address] [place] [address] Dear Ms. Shi, We are pleased to inform you that the results of your recent breast imaging exam on 01/17/2023 are normal. Early detection of cancer is very important. We also understand recommendations regarding breast cancer screening are controversial. Please discuss with your primary care provider which strategy is best for you and whether a mammogram is right for you. Your imaging studies and report will be kept on file at [facility] as part of your permanent medical record and are available for your continuing care. Thank you for allowing us to help in meeting your health care needs. Sincerely, Dr. Rubio Interpreting Radiologist [facility] (Normal over 40) documented in this encounter [facility] 01-17-2023 Note HNO ID: [id number] Author: RT Elliot(Helen) Service: Radiology Author Type: Technologist Type: Progress Notes Filed: 01/17/2023 9:46 AM Note Text: Radiology Service Progress Note PATIENT NAME: Zoltan Shi DATE OF SERVICE: January 17, 2023 TIME: 9:45 AM PATIENT IDENTITY VERIFICATION COMPLETED USING TWO (2) IDENTIFIERS: Name and Date of confirmed by patient verbally. FALL SCREENING: Has the patient had 2 falls in the last year or 1 fall with injury or currently using an Ambulatory Assistive Device (Walker, Cane, Wheelchair, Crutches, etc.)? No PATIENT GENDER DATA: Female. status: : No status: N/A PATIENT RELEVANT IMPLANT DATA REVIEWED: Not Applicable RADIOLOGY DEPARTMENT: Mammography PERIPHERAL IV DATA: Not applicable SIGNED BY: RT Elliot(Helen) January 17, 2023 9:45 AM [facility] 01-17-2023 History of Presen t illness Narrative Radiology Service Progress Note PATIENT NAME: Zoltan Shi DATE OF SERVICE: January 17, 2023 TIME: 9:45 AM PATIENT IDENTITY VERIFICATION COMPLETED USING TWO (2) IDENTIFIERS: Name and Date of confirmed by patient verbally. FALL SCREENING: Has the patient had 2 falls in the last year or 1 fall with injury or currently using an Ambulatory Assistive Device (Walker, Cane, Wheelchair, Crutches, etc.)? No PATIENT GENDER DATA: Female. status: : No status: N/A PATIENT RELEVANT IMPLANT DATA REVIEWED: Not Applicable RADIOLOGY DEPARTMENT: Mammography PERIPHERAL IV DATA: Not applicable SIGNED BY: RT Elliot(R) January 17, 2023 9:45 AM documented in this encounter [facility] 08-31-2022 Note HNO ID: [id number] Author: Wiliam Purdy MD Service: ? Author Type: Physician Type: Progress Notes Filed: 08/31/2022 3:42 PM Note Text: (Elements copied from my note dated ,December 21, 2021 have been reviewed and updated where appropriate, and all reflect current assessment and medical decision making from today's encounter, August 31, 2022) HISTORY OF PRESENT ILLNESS: Zoltan Shi is a 65 year old female history thyroid cancer post iodine ablation, felt a left breast mass brought it to Dr Franco's attention. Imaging showed this mass, also another mass left breast. Biopsy of palpable mass returned benign, but nonpalpable mass was positive for IDC grade 1. ER+/NJ+/Her neg by FISH. She is here today for follow up, post mastectomy 03-26-[address] Franco. pT1cN0 grade 2. Oncotype showed RS 15, low risk. On anastrozole since April 2018. Here for follow up, feels well. PCP manages her CTD. dxa done at [facility], good per patient. Right shoulder ok. CLINICAL IMPRESSION: Early stage left breast cancer, pT1cN0. RECOMMENDATION/PLAN: 1. Anastrozole 5 years. See back 6 months, digna final visit then as AI will be done in April 2023 2. Mammogram due every February. Written and verbal health teaching given to patient, patient verbalizes understanding and agrees with treatment plan. PAST MEDICAL HISTORY Diagnosis Date Breast cancer (HCC) 03/2018 Breast mass, left 01/2018 Connective tissue disease (HCC) Factor V Leiden (HCC) Follicular neoplasm of thyroid 12/05/2017 Added automatically from request for surgery [id number] Mitral valve regurgitation Thyroid cancer (HCC) 2018 Thyroid nodule 05/25/2013 PAST SURGICAL HISTORY Procedure Laterality Date APPENDECTOMY 2007 BREAST BIOPSY Left 1970s HYSTERECTOMY HX 2000 lap hyst, USO MAMMOTOME BIOPSY LEFT Left 01/29/2018 MASTECTOMY HX Left 03/26/2018 THYROID FINE NEEDLE ASPIRATION Left 11/28/2017 THYROIDECTOMY 12/25/2017 TUBAL LIGATION, FAMILY HISTORY Problem Relation Age of Onset Cancer Sister stomach 30's-alive in her 60's Cancer Father colon-60's Hypertension Mother Social History Tobacco Use Smoking status: Former Packs/day: 0.80 Types: Cigarettes Start date: 12/15/1977 Quit date: 02/21/2018 Years since quittin.5 Smokeless tobacco: Never Substance Use Topics Alcohol use: No Drug use: No ALLERGIES: ALLERGIES Allergen Reactions Demerol [Meperidine* Vomiting Codeine Hives CURRENT OUTPATIENT MEDICATIONS: anastrozole (ARIMIDEX) 1 mg tablet Take 1 tablet by mouth once daily. gabapentin (NEURONTIN) 100 mg capsule Take 100 mg by mouth daily at bedtime. buPROPion HCl, smoking deter, 150 mg Tb12 Take 150 mg by mouth twice daily. levothyroxine (SYNTHROID) 100 mcg tablet Take 1 tablet by mouth daily before breakfast. multivitamin tablet Take 1 tablet by mouth once daily. hydroxychloroquine (PLAQUENIL) 200 mg tablet Take 200 mg by mouth once daily. REVIEW OF SYSTEMS: GENERAL: No fever, night sweats, weight loss or malaise. MUSCULOSKELETAL: Negative for joint pain or swelling, back pain or muscle pain. NEUROLOGIC: No history of headaches, syncope, paralysis, seizures or tremors. HEENT: Negative for frequent or significant headaches, no changes in hearing or vision, no nose bleeds or other nasal problems. PSYCH: Negative for sleep disturbance, mood disorder and recent psychosocial stressors. NECK: Negative for lumps, goiter, pain and significant neck swelling. CARDIOVASCULAR: Negative for chest pain, leg swelling, or palpitations. RESPIRATORY: No cough or shortness of breath. GI: Negative for abdominal discomfort, blood in stools or black stools or change in bowel habits, or nausea. : No history of dysuria, frequency or incontinence. SKIN: Negative for lesions, rash or itching. HEMATOLOGY/LYMPHOLOGY: Negative for prolonged bleeding, bruising easily or swollen nodes. ENDOCRINE: Negative for cold or heat intolerance, polyuria, polydipsia and goiter. RHEUMATOLOGIC: negative All other reviewed and negative other than HPI. PHYSICAL: Appears well. LUNGS: Clear SPINE: NT BREASTS: Right normal no mass or adenopathy, left post mastectomy, reconstruction, no evidence local recurrence. I spent 30 minutes in the visit, with more than 50% of the total vjra-fk-vkwy time of the visit in counseling / coordination of care. Electronically Signed: Wiliam Purdy MD August 31, 2022 [facility] 08-31-2022 History of Presen t illness Narrative (Elements copied from my note dated ,December 21, 2021 have been reviewed and updated where appropriate, and all reflect current assessment and medical decision making from today's encounter, August 31, 2022) HISTORY OF PRESENT ILLNESS: Zoltan Shi is a 65 year old female history thyroid cancer post iodine ablation, felt a left breast mass brought it to Dr Franco's attention. Imaging showed this mass, also another mass left breast. Biopsy of palpable mass returned benign, but nonpalpable mass was positive for IDC grade 1. ER+/NJ+/Her neg by FISH. She is here today for follow up, post mastectomy 03-26-[address] Franco. pT1cN0 grade 2. Oncotype showed RS 15, low risk. On anastrozole since April 2018. Here for follow up, feels well. PCP manages her CTD. dxa done at [facility], good per patient. Right shoulder ok. CLINICAL IMPRESSION: Early stage left breast cancer, pT1cN0. RECOMMENDATION/PLAN: 1. Anastrozole 5 years. See back 6 months, digna final visit then as AI will be done in April 2023 2. Mammogram due every February. Written and verbal health teaching given to patient, patient verbalizes understanding and agrees with treatment plan. PAST MEDICAL HISTORY Diagnosis Date Breast cancer (HCC) 03/2018 Breast mass, left 01/2018 Connective tissue disease (HCC) Factor V Leiden (HCC) Follicular neoplasm of thyroid 12/05/2017 Added automatically from request for surgery [id number] Mitral valve regurgitation Thyroid cancer (HCC) 2018 Thyroid nodule 05/25/2013 PAST SURGICAL HISTORY Procedure Laterality Date APPENDECTOMY 2007 BREAST BIOPSY Left 1970s HYSTERECTOMY HX 2000 lap hyst, USO MAMMOTOME BIOPSY LEFT Left 01/29/2018 MASTECTOMY HX Left 03/26/2018 THYROID FINE NEEDLE ASPIRATION Left 11/28/2017 THYROIDECTOMY 12/25/2017 TUBAL LIGATION, FAMILY HISTORY Problem Relation Age of Onset Cancer Sister stomach 30's-alive in her 60's Cancer Father colon-60's Hypertension Mother Social History Tobacco Use Smoking status: Former Packs/day: 0.80 Types: Cigarettes Start date: 12/15/1977 Quit date: 02/21/2018 Years since quittin.5 Smokeless tobacco: Never Substance Use Topics Alcohol use: No Drug use: No ALLERGIES: ALLERGIES Allergen Reactions Demerol [Meperidine* Vomiting Codeine Hives CURRENT OUTPATIENT MEDICATIONS: anastrozole (ARIMIDEX) 1 mg tablet Take 1 tablet by mouth once daily. gabapentin (NEURONTIN) 100 mg capsule Take 100 mg by mouth daily at bedtime. buPROPion HCl, smoking deter, 150 mg Tb12 Take 150 mg by mouth twice daily. levothyroxine (SYNTHROID) 100 mcg tablet Take 1 tablet by mouth daily before breakfast. multivitamin tablet Take 1 tablet by mouth once daily. hydroxychloroquine (PLAQUENIL) 200 mg tablet Take 200 mg by mouth once daily. REVIEW OF SYSTEMS: GENERAL: No fever, night sweats, weight loss or malaise. MUSCULOSKELETAL: Negative for joint pain or swelling, back pain or muscle pain. NEUROLOGIC: No history of headaches, syncope, paralysis, seizures or tremors. HEENT: Negative for frequent or significant headaches, no changes in hearing or vision, no nose bleeds or other nasal problems. PSYCH: Negative for sleep disturbance, mood disorder and recent psychosocial stressors. NECK: Negative for lumps, goiter, pain and significant neck swelling. CARDIOVASCULAR: Negative for chest pain, leg swelling, or palpitations. RESPIRATORY: No cough or shortness of breath. GI: Negative for abdominal discomfort, blood in stools or black stools or change in bowel habits, or nausea. : No history of dysuria, frequency or incontinence. SKIN: Negative for lesions, rash or itching. HEMATOLOGY/LYMPHOLOGY: Negative for prolonged bleeding, bruising easily or swollen nodes. ENDOCRINE: Negative for cold or heat intolerance, polyuria, polydipsia and goiter. RHEUMATOLOGIC: negative All other reviewed and negative other than HPI. PHYSICAL: Appears well. LUNGS: Clear SPINE: NT BREASTS: Right normal no mass or adenopathy, left post mastectomy, reconstruction, no evidence local recurrence. I spent 30 minutes in the visit, with more than 50% of the total ifaw-xf-tjma time of the visit in counseling / coordination of care. Electronically Signed: Wiliam Purdy MD August 31, 2022 documented in this encounter [facility] 04-14-2022 Miscellaneous Notes Patient's request for medication is as follows: Pending Prescriptions Disp Refills ANASTROZOLE 1 MG TABLET 90 tablet 3 Sig: Take 1 tablet by mouth once daily. ESTEFANIA: No Prescription(s) as above. Please process accordingly. Linda Gandhi LPN documented in this encounter [facility] 04-13-2022 Miscellaneous Notes Patient's request for medication is as follows: Pending Prescriptions Disp Refills ANASTROZOLE 1 MG TABLET 90 tablet 3 Sig: Take 1 tablet by mouth once daily. ESTEFANIA: No Prescription(s) as above. Please process accordingly. Joellen Deras Ma documented in this encounter [facility] 12-21-2021 Note HNO ID: [id number] Author: Wiliam Purdy MD Service: ? Author Type: Physician Type: Progress Notes Filed: 12/21/2021 1:01 PM Note Text: (Elements copied from my note dated January 20, 2021 , have been reviewed and updated where appropriate, and all reflect current assessment and medical decision making from today's encounter, December 21, 2021) HISTORY OF PRESENT ILLNESS: Zoltan Shi is a 65 year old female history thyroid cancer post iodine ablation, felt a left breast mass brought it to Dr Franco's attention. Imaging showed this mass, also another mass left breast. Biopsy of palpable mass returned benign, but nonpalpable mass was positive for IDC grade 1. ER+/NJ+/Her neg by FISH. She is here today for follow up, post mastectomy 03-26-[address] Franco. pT1cN0 grade 2. Oncotype showed RS 15, low risk. On anastrozole since April 2018. Here for follow up, feels well. PCP manages her CTD. dxa needs to be updated. Right shoulder ok. CLINICAL IMPRESSION: Early stage left breast cancer, pT1cN0. RECOMMENDATION/PLAN: 1. Anastrozole 5-7 years. 2. Mammogram due every February. 3. dxa due any time now. Written and verbal health teaching given to patient, patient verbalizes understanding and agrees with treatment plan. PAST MEDICAL HISTORY Diagnosis Date - Breast cancer (HCC) 03/2018 - Breast mass, left 01/2018 - Connective tissue disease (HCC) - Factor V Leiden (HCC) - Follicular neoplasm of thyroid 12/05/2017 Added automatically from request for surgery [id number] - Mitral valve regurgitation - Thyroid cancer (HCC) 2018 - Thyroid nodule 05/25/2013 PAST SURGICAL HISTORY Procedure Laterality Date - APPENDECTOMY 2006 - BREAST BIOPSY Left - HYSTERECTOMY HX 1999 lap hyst, USO - MAMMOTOME BIOPSY LEFT Left 01/29/2018 - MASTECTOMY HX Left 03/26/2018 - THYROID FINE NEEDLE ASPIRATION Left 11/28/2017 - THYROIDECTOMY 12/25/2017 - TUBAL LIGATION, FAMILY HISTORY Problem Relation Age of Onset - Cancer Sister stomach 30's-alive in her 60's - Cancer Father colon-60's - Hypertension Mother Social History Tobacco Use - Smoking status: Former Smoker Packs/day: 0.80 Types: Cigarettes Start date: 12/15/1977 Quit date: 02/21/2018 Years since quittin.8 - Smokeless tobacco: Never Used Substance Use Topics - Alcohol use: No - Drug use: No ALLERGIES: ALLERGIES Allergen Reactions - Demerol [Meperidine* Vomiting - Codeine Hives CURRENT OUTPATIENT MEDICATIONS: anastrozole (ARIMIDEX) 1 mg tablet Take 1 tablet by mouth once daily. gabapentin (NEURONTIN) 100 mg capsule Take 100 mg by mouth daily at bedtime. buPROPion HCl, smoking deter, 150 mg Tb12 Take 150 mg by mouth twice daily. levothyroxine (SYNTHROID) 100 mcg tablet Take 1 tablet by mouth daily before breakfast. multivitamin tablet Take 1 tablet by mouth once daily. hydroxychloroquine (PLAQUENIL) 200 mg tablet Take 200 mg by mouth once daily. REVIEW OF SYSTEMS: GENERAL: No fever, night sweats, weight loss or malaise. MUSCULOSKELETAL: Negative for joint pain or swelling, back pain or muscle pain. NEUROLOGIC: No history of headaches, syncope, paralysis, seizures or tremors. HEENT: Negative for frequent or significant headaches, no changes in hearing or vision, no nose bleeds or other nasal problems. PSYCH: Negative for sleep disturbance, mood disorder and recent psychosocial stressors. NECK: Negative for lumps, goiter, pain and significant neck swelling. CARDIOVASCULAR: Negative for chest pain, leg swelling, or palpitations. RESPIRATORY: No cough or shortness of breath. GI: Negative for abdominal discomfort, blood in stools or black stools or change in bowel habits, or nausea. : No history of dysuria, frequency or incontinence. SKIN: Negative for lesions, rash or itching. HEMATOLOGY/LYMPHOLOGY: Negative for prolonged bleeding, bruising easily or swollen nodes. ENDOCRINE: Negative for cold or heat intolerance, polyuria, polydipsia and goiter. RHEUMATOLOGIC: negative All other reviewed and negative other than HPI. PHYSICAL: Appears well. LUNGS: Clear SPINE: NT BREASTS: Right normal no mass or adenopathy, left post mastectomy, reconstruction, no evidence local recurrence. I spent 30 minutes in the visit, with more than 50% of the total ahii-qy-quim time of the visit in counseling / coordination of care. Electronically Signed: Wiliam Purdy MD December 21, 2021 [facility] documented as of this encounter (statuses as of 04/12/2022) [facility] History of Past illness Narrative* Problem Noted Date Resolved Date Follicular neoplasm of thyroid 12/05/2017 1 Overview: Added automatically from request for surgery [id number] Thyroid nodule 05/25/2013 08/29/2018 documented as of this encounter (statuses as of 04/13/2022) [facility] History of Past illness Narrative* Problem Noted Date Resolved Date Follicular neoplasm of thyroid 12/05/2017 1 Overview: Added automatically from request for surgery [id number] Thyroid nodule 05/25/2013 08/29/2018 documented as of this encounter (statuses as of 04/18/2022) [place] [id number] History of Past illness Narrative* Problem Noted Date Resolved Date Follicular neoplasm of thyroid 12/05/2017 1 Overview: Added automatically from request for surgery [id number] Thyroid nodule 05/25/2013 08/29/2018 documented as of this encounter (statuses as of 06/07/2022) [place] [id number] History of Past illness Narrative* Problem Noted Date Resolved Date Follicular neoplasm of thyroid 12/05/2017 1 Overview: Added automatically from request for surgery [id number] Thyroid nodule 05/25/2013 08/29/2018 documented as of this encounter (statuses as of 08/31/2022) [place] [id number] History of Past illness Narrative* Problem Noted Date Resolved Date Follicular neoplasm of thyroid 12/05/2017 1 Overview: Added automatically from request for surgery [id number] Thyroid nodule 05/25/2013 08/29/2018 documented as of this encounter (statuses as of 01/18/2023) [place] [id number] History of Past illness Narrative* Problem Noted Date Resolved Date Follicular neoplasm of thyroid 12/05/2017 1 Overview: Added automatically from request for surgery [id number] Thyroid nodule 05/25/2013 08/29/2018 documented as of this encounter (statuses as of 01/20/2023) [facility] Malignant neoplasm of upper-outer quadrant of left breast in female, estrogen receptor positive (HCC)- Primary Encounter for screening mammogram for malignant neoplasm of breast Other screening mammogram [facility] Diagnosis Malignant neoplasm of upper-outer quadrant of left breast in female, estrogen receptor positive (HCC) Encounter for screening mammogram for malignant neoplasm of breast Other screening mammogram documented in this encounter [facility] for referral (narrative)* Diagnostic Procedure Only (Routine) - Pending Review Specialty Diagnoses / Procedures Referred By Juana waltno Referred To Contact [facility] Diagnoses Malignant neoplasm of upper-outer quadrant of left breast in female, estrogen receptor positive (HCC) Encounter for screening mammogram for malignant neoplasm of breast Procedures BRITNEY SCREENING SCREENING MAMMOGRAPHY BI 2-[place] [id number] [place] [id number] [facility] [address] [place] [address] Referral ID Status Reason Start Date Expiration Date Visits Requested Visits Authorized [id number] Pending Review Auto-Generat ed Referral 03/01/2023 09/30/2023 1 1 [facility] for visit Narrative* Diagnostic Procedure Only (Routine) - Closed Specialty Diagnoses / Procedures Referred By Juana walton Referred To Contact [facility] Diagnoses Malignant neoplasm of upper-outer quadrant of left breast in female, estrogen receptor positive (HCC) Encounter for screening mammogram for malignant neoplasm of breast Procedures BRITNEY SCREENING SCREENING MAMMOGRAPHY BI 2-VIEW [place] [address] [place] [id number] [facility] [address] [place] [address] Referral ID Status Reason Start Date Expiration Date V isits Requested Visits Authorized [id number] Closed Auto-Generate d Referral 03/01/2023 09/30/2023 1 1 [facility] Summary Purpose Family History No Family History Records FoundNo Family History Records FoundNo Family History Records FoundNo Family History Records FoundNo Family History Records Found Advance Directives No Advanced Directives Records FoundDocuments on File Type Date Recorded 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 Advance Directive(s) 03/26/2018 10:24 AM Advance Directive(s) 12/25/2017 11:38 AM Additional Source Comments INFORMATION SOURCE (unrecogn ized section and content) DATE CREATED AUTHOR AUTHOR'S ORGANIZ ATION 04/27/2020 [facility] DATE CREATED AUTHOR AUTHOR'S ORGANIZ ATION 02/20/2021 [facility] DATE CREATED AUTHOR AUTHOR'S ORGANIZ ATION 09/05/2022 [facility] DATE CREATED AUTHOR AUTHOR'S ORGANIZ ATION 01/21/2023 [facility] Source Comments (unrecognize d section and content) In the event this informatio n is protected by the Federal Confidentiality of Alcohol and Drug Abuse Patient Records regulations: The Federal rules restrict any use of the information to criminally investigate or prosecute any alcohol or drug abuse patient.[facility] the event this information is protected by the Federal Confidentiality of Alcohol and Drug Abuse Patient Records regulations: The Federal rules restrict any use of the information to criminally investigate or prosecute any alcohol or drug abuse patient.[facility] the event this information is protected by the Federal Confidentiality of Alcohol and Drug Abuse Patient Records regulations: The Federal rules restrict any use of the information to criminally investigate or prosecute any alcohol or drug abuse patient.[facility] the event this information is protected by the Federal Confidentiality of Alcohol and Drug Abuse Patient Records regulations: The Federal rules restrict any use of the information to criminally investigate or prosecute any alcohol or drug abuse patient.[facility] the event this information is protected by the Federal Confidentiality of Alcohol and Drug Abuse Patient Records regulations: The Federal rules restrict any use of the information to criminally investigate or prosecute any alcohol or drug abuse patient.[facility] the event this information is protected by the Federal Confidentiality of Alcohol and Drug Abuse Patient Records regulations: The Federal rules restrict any use of the information to criminally investigate or prosecute any alcohol or drug abuse patient.[facility] the event this information is protected by the Federal Confidentiality of Alcohol and Drug Abuse Patient Records regulations: The Federal rules restrict any use of the information to criminally investigate or prosecute any alcohol or drug abuse patient.[facility] Care Teams (unrecognized sec tion and content) [employer] Relationship Specialty Start Date End Date Manuel, Zhanna A, DO [address] [place], [place] [id number] PCP - General Family Practice 02/20/18 [employer] Relationship Specialty Start Date End Date Zhanna Jackson, DO [address] [place], [place] [id number] PCP - General Family Practice 02/20/18 [employer] Relationship Specialty Start Date End Date Zhanna Jackson, DO [address] [place], [place] [id number] PCP - General Family Medicine 02/20/18 [employer] Relationship Specialty Start Date End Date Zhanna Jackson, [address] [place], [place] [id number] PCP - General Family Medicine 02/20/18 [employer]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 This clinical summary was aggregated from multiple sources. Caution should be exercised in using it in the provision of clinical care. This summary normalizes information from multiple sources, and as a consequence, information in this document may materially change the coding, format and clinical context of patient data. In addition, data may be omitted in some cases. CLINICAL DECISIONS SHOULD BE BASED ON THE PRIMARY CLINICAL RECORDS. [employer] [facility]. provides no warranty or guarantee of the accuracy or completeness of information in this document.
== END | disposition home or self-care (01) ==
LOC: CT 07:16
PROVIDERS: PCP Family Medicine; Referring Provider Family Medicine; Visit Provider Family Medicine
DX: Z12.2 Encounter for screening for malignant neoplasm of respiratory organs (principal); Z87.891 Personal history of nicotine dependence; Z13.6 Encounter for screening for cardiovascular disorders
CPT/HCPCS: 71271; 76775

== ENCOUNTER → 2024-03-18 | Outpatient (CLI) | payer MEDICARE, OTHER, SELFPAY ==
[2024-03-18 11:56] LABS: Absolute Lymphocyte Count 1.44 X10^3/uL (0.83-4.51); Absolute Neutrophil Count 3.7 X10^3/uL (2.0-7.7); Basophil# 0.08 X10^3/uL; Basophil% 1.4 % (0-1); Eosinophil# 0.19 X10^3/uL; Eosinophils% 3.2 % (0-5); Hematocrit 42.5 % (37-47); Hemoglobin 13.9 g/dL (12.0-15.0); Lymphocyte # 1.44 X10^3/ul (0.83-4.51); Lymphocyte % 24.4 % (19-41); Mean Corp Hgb Conc 32.7 g/dL (32-36); Mean Corpuscular Hgb 31.3 pg (27.0-32.0); Mean Corpuscular Volume 95.7 fL (81-99); Mean Platelet Vol. 11.1 fl (6.2-12.0); Monocyte# 0.46 X10^3/uL; Monocyte% 7.8 % (0-10); NRBC Flagged by Analyzer 0 % (0-5); Neutrophil # 3.68 X10^3/uL (2.7-7.7); Neutrophil % 62.5 % (47-70); Platelet Count 242 K/mm3 (150-450); RBC Distribution Width CV 13.1 % (11.6-14.6); RBC Distribution Width SD 46.3 fl (35.1-43.9); Red Blood Count 4.44 M/mm3 (4.2-5.4); White Blood Count 5.9 K/mm3 (4.4-11.0)
[2024-03-18 12:23] LABS: ALB/GLOB Ratio 0.9 RATIO (0.9-2.4); AST(SGOT) 20 U/L (15-37); Alanine Aminotransfer ALT/SGPT 16 U/L (13-56); Albumin, Serum 3.5 g/dL (3.2-5.0); Alkaline Phosphatase 63 U/L (45-117); Anion Gap 4 (5-15); BUN 8 mg/dL (7-18); BUN/Creat Ratio 10.7 RATIO (10-20); Calcium,Total 9.7 mg/dL (8.5-10.1); Chloride 111 mmol/L (98-107); Cholesterol 214 mg/dL (200); Creatinine, Serum 0.75 mg/dL (0.55-1.02); EST Glomerular Filtration Rate 83 mL/min (>60); Est Glom Filt Rate - Afr Amer 100 mL/min (>60); Globulin 3.7 g/dL (2.2-4.2); Glucose 87 mg/dL (74-106); High Density Lipoprotein 52 mg/dL; Potassium 4.7 mmol/L (3.5-5.1); Protein, Total 7.2 g/dL (6.4-8.2); Sodium Level 141 mmol/L (136-145); T4 Free Direct 1.32 ng/dL (0.76-1.46); Thyroid Stim Hormone (TSH) 1.17 uIU/mL (0.358-3.74); Triglycerides 91 mg/dL; Very Low Density Lipoprotein 18 mg/dL (5-40)
== END | disposition home or self-care (01) ==
LOC: BFHLAB 10:45
PROVIDERS: PCP Family Medicine; Referring Provider Family Medicine; Visit Provider Family Medicine
DX: Z51.81 Encounter for therapeutic drug level monitoring (principal); E03.2 Hypothyroidism due to medicaments and other exogenous substances; E78.5 Hyperlipidemia, unspecified
CPT/HCPCS: 36415; 80053; 80061; 84439; 84443; 85025

== ENCOUNTER → 2024-10-08 | Outpatient (CLI) | payer MEDICARE, OTHER, SELFPAY ==
--- NOTE | 2024-10-08 11:56 | BI_ITS ---
MAMMOGRAPHY - UNILATERAL SCREENING: RIGHT BREAST REASON FOR EXAM: Female, 68 years old. Routine annual screening examination (unilateral). PERTINENT HISTORY: Personal history of breast cancer. Prior left mastectomy. TECHNIQUE: Digital unilateral breast rubén (3D mammographic acquisition) in the CC and MLO projections. 2-D mediolateral oblique (MLO) and craniocaudad (CC) views of both breasts were obtained. CAD: Full Field Digital Mammography with Computer Added Detection was performed. COMPARISON: Comparison is made with prior outside examination dated January 17, 2023. FINDINGS: Breast Composition: The breasts are heterogeneously dense, which may obscure small masses. There are no dominant masses or suspicious calcifications. No other significant abnormalities are identified. There has been no significant change since the prior study. BI/SCREEN MAMM (CAD) W/RUBÉN UNI R IMPRESSION: Stable unilateral screening mammogram. Yearly follow-up mammogram recommended. (A) ASSESSMENT CATEGORY: BIRADS Category 1: Negative. A letter regarding these results will be sent to the patient by the facility within 30 days. Approximately 10% of breast cancers are not detected by mammography. A normal mammogram should not delay biopsy of a clinically suspicious abnormality. [id number] Electronically Signed: Conrado Ureña MD at 8:53 EST ,
== END | disposition home or self-care (01) ==
LOC: OPBI 11:54
PROVIDERS: PCP Family Medicine; Referring Provider Family Medicine; Visit Provider Family Medicine
DX: Z12.31 Encounter for screening mammogram for malignant neoplasm of breast (principal); Z90.12 Acquired absence of left breast and nipple
CPT/HCPCS: 77063; 77067

== ENCOUNTER → 2025-04-01 | Outpatient (CLI) | payer MEDICARE, OTHER, SELFPAY ==
--- NOTE | 2025-04-01 07:08 | US_ITS ---
PROCEDURE: ABDOMEN LIMITED 04/01/2025 REASON FOR EXAM: EPIGASTRIC PAIN COMPARISON: None FINDINGS: Liver: Grossly normal size and echotexture. Gallbladder: No stones sludge wall thickening or tenderness. Common bile duct: Normal measuring 3 mm . Pancreas: Normal Other: Subcentimeter cyst in the upper pole of the right kidney. US/Abdomen Limited IMPRESSION: NORMAL RIGHT UPPER QUADRANT ULTRASOUND. Reading Location: [place] [id number]
[2025-04-01 07:18] LABS: Absolute Lymphocyte Count 0.86 X10^3/uL (0.83-4.51); Absolute Neutrophil Count 3.3 X10^3/uL (2.0-7.7); Basophil# 0.05 X10^3/uL; Eosinophil# 0.09 X10^3/uL; Eosinophils% 1.9 % (0-5); Hematocrit 41.8 % (37-47); Hemoglobin 13.9 g/dL (12.0-15.0); Lymphocyte # 0.86 X10^3/ul (0.83-4.51); Mean Corp Hgb Conc 33.3 g/dL (32-36); Mean Corpuscular Hgb 31.5 pg (27.0-32.0); Mean Corpuscular Volume 94.8 fL (81-99); Mean Platelet Vol. 9.6 fl (6.2-12.0); Monocyte# 0.43 X10^3/uL; NRBC Flagged by Analyzer 0 % (0-5); Neutrophil # 3.32 X10^3/uL (2.7-7.7); Neutrophil % 69.7 % (47-70); Platelet Count 285 K/mm3 (150-450); RBC Distribution Width CV 13.7 % (11.6-14.6); RBC Distribution Width SD 47.6 fl (35.1-43.9); Red Blood Count 4.41 M/mm3 (4.2-5.4); White Blood Count 4.8 K/mm3 (4.4-11.0)
[2025-04-01 08:15] LABS: ALB/GLOB Ratio 1.2 RATIO (0.9-2.4); AST(SGOT) 21 U/L (<=31); Alanine Aminotransfer ALT/SGPT 10 U/L (<=34); Albumin, Serum 3.9 g/dL (3.4-4.8); Alkaline Phosphatase 76 U/L (35-104); Anion Gap 10 (5-15); BUN 5 mg/dL (4-19); BUN/Creat Ratio 6.6 RATIO (10-20); Calcium,Total 9.4 mg/dL (7.6-11.0); Carbon Dioxide 23.2 mmol/L (21.0-32.0); Chloride 106 mmol/L (98-108); Cholesterol 207 mg/dL (<=200); Creatinine, Serum 0.79 mg/dL (0.70-1.20); EST Glomerular Filtration Rate 82 (>60); Globulin 3.4 g/dL (2.2-4.2); Glucose 99 mg/dL (70-99); High Density Lipoprotein 37 mg/dL; Low Density Lipoprotein Calc. 146 mg/dL; Potassium 4.1 mmol/L (3.3-5.1); Protein, Total 7.3 g/dL (5.9-8.4); Sodium Level 138 mmol/L (133-145); Total Bilirubin 0.38 mg/dL (0.00-1.30); Triglycerides 116 mg/dL; Very Low Density Lipoprotein 23 mg/dL (5-40); cholesterol:hdl ratio screen 5.53
== END | disposition home or self-care (01) ==
PROVIDERS: PCP Family Medicine; Referring Provider Family Medicine; Visit Provider Family Medicine
DX: R10.13 Epigastric pain (principal); E03.2 Hypothyroidism due to medicaments and other exogenous substances; E78.5 Hyperlipidemia, unspecified; Z51.81 Encounter for therapeutic drug level monitoring
CPT/HCPCS: 36415; 76705; 80053; 80061; 84439; 84443; 85025

== ENCOUNTER → 2025-10-23 | Outpatient (CLI) | payer MEDICARE, OTHER, SELFPAY ==
--- NOTE | 2025-10-23 12:20 | BI_ITS ---
EXAM: SCREEN MAMM (CAD) W/RUBÉN UNI R DATE: 10/23/2025 CLINICAL HISTORY: F, Age 69 y/o , SCREENING Personal history of breast cancer. Prior left mastectomy. TECHNIQUE: Procedure Code: [id number] Modality: MG Procedure: SCREEN MAMM (CAD) W/RUBÉN UNI R COMPARISON: Prior exam(s) dated January 26, 2022.. FINDINGS: TISSUE DENSITY: The breasts are heterogeneously dense, which may obscure small masses. Bilateral Breast Mammographic Findings: No significant masses, calcifications or other abnormalities are identified. No suspicious masses, areas of developing architectural distortion, or suspicious calcifications. There has been no significant interval change. BI/SCREEN MAMM (CAD) W/RUBÉN UNI R IMPRESSION: Stable unilateral screening mammogram. OVERALL FINAL ASSESSMENT BI-RADS 1: NEGATIVE. RECOMMENDATION: Routine annual follow-up in 1 Year Additional Recommendation none A letter with findings and recommendations will be mailed to the patient. Reading Location: [place] [address]
== END | disposition home or self-care (01) ==
LOC: OPBI 12:19
PROVIDERS: PCP Family Medicine; Referring Provider Family Medicine; Visit Provider Family Medicine
DX: Z12.31 Encounter for screening mammogram for malignant neoplasm of breast (principal)
CPT/HCPCS: 77063; 77067